=== PATIENT | male | born 1950 | race Two or more races ===

== ENCOUNTER 2024-02-08 15:50 | Emergency (ER) | payer OTHER ==
[~2024-02-08] VITALS: Ht 177.8 cm; Wt 90.7 kg
[2024-02-08] MEDS ORDERED: [UNRECOGNIZED DRUG - OTHER] (15:55)
[2024-02-08] MEDS ORDERED: 0.9 % SODIUM CHLORIDE 1,000 ML IV SCH (16:30)
[2024-02-08 16:54] LABS: HEMATOCRIT 41.1 % (39.0-48.0); HEMOGLOBIN 13.8 g/dL (13-16.00); MEAN CELL VOLUME 89.4 fL (80.0-100.00); MEAN CORPUSCULAR HGB CONC 33.6 g/dl (32.0-36.0); PLATELET COUNT 165 K/uL (150-450); RED CELL DISTRIBUTION WIDTH 13.4 % (11.5-14.5)
[2024-02-08 17:31] LABS: CALCIUM 8.8 mg/dL (8.5-10.1); CREATININE SERUM 1.38 mg/dL (0.70-1.30); GFR 50.65; POTASSIUM 4.54 mEq/L (3.5-5.1)
== END 2024-02-08 19:08 | disposition home or self-care (01) ==
LOC: ER 15:50
PROVIDERS: Emergency Medicine
DX: R55 Syncope and collapse (principal)